=== PATIENT | male | born 1995 | race Caucasian/White ===

== ENCOUNTER → 2017-05-31 | Outpatient (CLI) | payer OTHER | END | disposition home or self-care (01) | LOC: C.LABSPEC 15:41 | PROVIDERS: ATTEND Surgery | DX: L05.01 Pilonidal cyst with abscess (principal) ==

== ENCOUNTER → 2017-08-22 | Outpatient (CLI) | payer OTHER | END | disposition home or self-care (01) | LOC: C.RDSM 10:00 | PROVIDERS: ATTEND Orthopaedic Surgery Sports Medicine | DX: S49.90XA Unspecified injury of shoulder and upper arm, unspecified arm, initial encounter (principal); X58.XXXA Exposure to other specified factors, initial encounter ==

== ENCOUNTER 2017-09-01 23:38 | Emergency (ER) | payer OTHER ==
[~2017-09-01] VITALS: Ht 180.3 cm; Wt 104.3 kg
[2017-09-01 23:40] VITALS: TEMP 36.7; Ht 180.3 cm; Wt 104.3 kg
[2017-09-02] MEDS ORDERED: LORAZEPAM 1 MG TAB SL STA
[2017-09-02 00:21] LABS: PTT PATIENT 28.8 SECONDS (21.0-31.0)
[2017-09-02 00:36] LABS: CALCIUM 8.4 mg/dl (8.5-10.1); POTASSIUM 3.9 mmol/L (3.5-5.1)
[2017-09-02 00:39] LABS: HEMATOCRIT 45.7 % (42-52); HEMOGLOBIN 16.1 g/dL (14.0-18.0); MEAN CELL VOLUME 89.6 fL (80-100)
[2017-09-02 00:40] LABS: MEAN CORPUSCULAR HEMOGLOBIN 31.6 pg (25-34); MEAN CORPUSCULAR HGB CONC 35.2 g/dl (32-36); MEAN PLATELET VOLUME 9.9 fL (7.4-10.4); PLATELET COUNT 351 K/uL (130-400); RED CELL DISTRIBUTION WIDTH CV 13.7 % (11.5-14.5); RED CELL DISTRIBUTION WIDTH SD 45.3 fL (36.4-46.3)
[2017-09-02 00:55] LABS: BASO % 0.7 %; BASO ABS # 0.08 K/uL (0-0.2); EOS % 1.5 %; EOS ABS # 0.18 K/uL (0-0.5); IG# 0.02 K/uL (0.00-0.02); LYMPH % 38.5 %; LYMPH ABS # 4.74 K/uL (1.2-3.4); MONO % 13.6 %; MONO ABS # 1.67 K/uL (0.11-0.59); NEUT % 45.5 %; NEUT ABS # 5.61 K/uL (1.4-6.5)
[2017-09-02 01:08] VITALS: BP 142/59; PULSE 63; O2SAT 96
--- NOTE | 2017-09-02 02:25 | EMERGENCY ROOM VISIT NOTE ---
History Report prepared by Lico: Jhonatan العلي Under the Supervision of: Dr. Tony Wise M.D. First contact with patient: 23:54 Chief Complaint: CHEST PAIN Stated Complaint: CHEST PAIN History of Present Illness The patient is a 21 year old male who presents to the Emergency Room with complaints of heavy chest pain beginning 40 minutes ago which lasted for roughly 20 minutes. The patient describes the pain as sharp and notes that it does not radiate anywhere. He states that he was drinking alcohol when the pain began. The patient notes experiencing similar chest tightness 1 week ago which resolved 3 days ago. The patient denies any swelling or pain in his legs, recent long distance travel, family history of clots, cocaine or amphetamine use , abdominal pain, vomiting, fevers, or a history of panic attacks or anxiety. He notes a history of hypertension. He initially stated that his chest pain had resolved but states that he is still has a little bit of tightness. Source of History: patient Onset: 40 minutes ago Position: chest Symptom Intensity: severe Quality: sharp, other (heavy ) Timing: resolved Modifying Factors (Worsening): other (none ) Modifying Factors (Relieving): other (none ) Associated Symptoms: No fevers, No vomiting, No abdominal pain Note: Denies: Swelling or pain in legs, history of anxiety. Review of Systems See HPI for pertinent positives & negatives. A total of 10 systems reviewed and were otherwise negative. Past Medical & Surgical No significant past medical history Family History Patient reports no known family medical history. Social History Alcohol Use: occasionally Drug Use: none Marital Status: single Housing Status: lives with roommate Occupation Status: [employer] Current/Historical Medications No Active Prescriptions or Reported Meds Allergies Coded Allergies: Monosodium Glutamate (Verified Allergy, Unknown, unknown, 09/02/17) Sodium Nitrate (Verified Allergy, Unknown, unknown, 09/02/17) Physical Exam Vital Signs Date Time Temp Pulse Resp B/P (MAP) Pulse Ox O2 Delivery O2 Flow Rate FiO2 09/02/17 01:08 63 16 142/59 96 Room Air 09/02/17 00:05 67 09/01/17 23:40 97 Room Air 09/01/17 23:40 36.7 66 16 144/85 97 Room Air Physical Exam Constitutional: Vital signs reviewed. Slightly anxious. Eyes: Pupils are equal round reactive to light. Conjunctiva are noninjected. ENT: Pharynx is clear without erythema or exudate. Mucous membranes are moist. Neck supple without meningeal signs. Respiratory: Clear to auscultation bilaterally. Breath sounds are equal bilaterally. Cardiovascular: Regular rate and rhythm. No rubs or gallops. GI: Soft, nondistended and nontender. Bowel sounds are present. Musculoskeletal: No peripheral edema. No lower extremity tenderness. Integumentary: No cyanosis. Neurological: The patient is awake and alert. No focal deficits. Psychiatric: Anxious appearing. Medical Decision & Procedures ER Provider Diagnostic Interpretation: Radiology results as stated below per my review : CHEST X-RAY: No acute cardiopulmonary process. No consolidation. Laboratory Results 09/01/17 23:52 Red Blood Count 5.10, Mean Corpuscular Volume 89.6, Mean Corpuscular Hemoglobin 31.6, Mean Corpuscular Hemoglobin Concent 35.2, Mean Platelet Volume 9.9, Neutrophils (%) (Auto) 45.5, Lymphocytes (%) (Auto) 38.5, Monocytes (%) (Auto) 13.6, Eosinophils (%) (Auto) 1.5, Basophils (%) (Auto) 0.7, Neutrophils # (Auto ) 5.61, Lymphocytes # (Auto) 4.74, Monocytes # (Auto) 1.67, Eosinophils # (Auto ) 0.18, Basophils # (Auto) 0.08 09/01/17 23:52 Test 09/01/17 23:52 09/02/17 00:22 White Blood Count 12.30 K/uL (4.8-10.8) Red Blood Count 5.10 M/uL (4.7-6.1) Hemoglobin 16.1 g/dL (14.0-18.0) Hematocrit 45.7 % (42-52) Mean Corpuscular Volume 89.6 fL (80-100) Mean Corpuscular Hemoglobin 31.6 pg (25-34) Mean Corpuscular Hemoglobin Concent 35.2 g/dl (32-36) Platelet Count 351 K/uL (130-400) Mean Platelet Volume 9.9 fL (7.4-10.4) Neutrophils (%) (Auto) 45.5 % Lymphocytes (%) (Auto) 38.5 % Monocytes (%) (Auto) 13.6 % Eosinophils (%) (Auto) 1.5 % Basophils (%) (Auto) 0.7 % Neutrophils # (Auto) 5.61 K/uL (1.4-6.5) Lymphocytes # (Auto) 4.74 K/uL (1.2-3.4) Monocytes # (Auto) 1.67 K/uL (0.11-0.59) Eosinophils # (Auto) 0.18 K/uL (0-0.5) Basophils # (Auto) 0.08 K/uL (0-0.2) RDW Standard Deviation 45.3 fL (36.4-46.3) RDW Coefficient of Variation 13.7 % (11.5-14.5) Immature Granulocyte % (Auto) 0.2 % Immature Granulocyte # (Auto) 0.02 K/uL (0.00-0.02) Red Blood Cell Morphology Unremarkable Prothrombin Time 10.2 SECONDS (9.0-12.0) Prothromb Time International Ratio 1.0 (0.9-1.1) Activated Partial Thromboplast Time 28.8 SECONDS (21.0-31.0) Partial Thromboplastin Ratio 1.1 Anion Gap 7.0 mmol/L (3-11) Est Creatinine Clear Calc Drug Dose 142.4 ml/min Estimated GFR () 123.3 Estimated GFR (Non- 106.4 BUN/Creatinine Ratio 15.5 (10-20) Calcium Level 8.4 mg/dl (8.5-10.1) Bedside D-Dimer 142 ng/mlFEU (0-450) Bedside Troponin I < 0.030 ng/ml (0-0.045) ECG Per My Interpretation Indication: chest pain Rate (beats per minute): 55 Rhythm: sinus bradycardia Findings: other (QRS 120ms, early repolarization, no PVCs) ED Course 1382: The patient was evaluated in room C6. A complete history and physical exam was performed. 0000: Ordered Lorazepam 1mg SL. 0114: I reevaluated the patient, his chest pain is now gone. I discussed his test results with him. 0130: Upon reevaluation, the patient appeared to have improvement of his symptoms. I discussed tonight's findings with him. He verbalized agreement of the treatment plan. He was discharged home. Medical Decision This is a 21-year-old male presents with chest pain. Differential diagnosis includes GERD, pleurisy, pulmonary embolism, pneumothorax, anxiety. I did perform a limited focused review of portions of the patient's old chart on the electronic medical record. The patient has had no recent pertinent visits to this hospital. I did evaluate the patient as noted above. IV access was established. The patient was placed on a continuous nurse monitoring. I did order and personally review the patient's 12-lead EKG and chest x-ray as described above. He has no acute ischemic changes on his twelve-lead EKG. Chest x-ray is unremarkable. I did order and review the patient's blood work as noted in the electronic medical record. Troponin and d-dimer are negative. I did treat patient with Ativan 1 mg sublingually. I did reassess patient. He states his chest discomfort is gone. He feels much better. I did discuss the test results with him. I did recommend close follow-up with his doctor. He was discharged in good condition. He was advised to avoid alcohol in case he does have some reflux. Medication Reconcilliation Current Medication List: was personally reviewed by me Blood Pressure Screening Patient's blood pressure: Elevated blood pressure Blood pressure disposition: Referred to PCP The patient is hypertensive. Impression Primary Impression: Acute chest pain Scribe Attestation The scribe's documentation has been prepared under my direct and personally reviewed by me in its entirety. I confirm that the note above accurately reflects all work, treatment, procedures, and medical decision making performed by me. Departure Information Dispostion Home / Self-Care Prescriptions No Active Prescriptions or Reported Meds Referrals No Doctor, Assigned (PCP) Forms HOME CARE DOCUMENTATION FORM, IMPORTANT VISIT INFORMATION Patient Instructions ED Chest Pain Atypical Unkn Cause, My [facility] Additional Instructions You have been examined and treated today on an emergency basis only. This is not a substitute for, or an effort to provide, complete comprehensive medical care. It is impossible to recognize and treat all injuries or illnesses in a single emergency department visit. It is therefore important that you follow up closely with your physician. Call as soon as possible for an appointment. Return for worsening symptoms or if you develop fever, vomiting, or any other concerning symptoms.
--- NOTE | 2017-09-02 06:32 | DIAGNOSTIC IMAGING REPORT ---
CHEST 2 VIEWS ROUTINE HISTORY: 21 years-old Male eval for pna acute atypical chest pain with cough COMPARISON: None available TECHNIQUE: PA and lateral views of the chest FINDINGS: Cardiomediastinal and hilar silhouettes are within normal limits. There is no pneumothorax, pleural effusion, focal airspace consolidation or overt pulmonary edema. The bones of the chest appear grossly intact. There is slight convex right curvature of the midthoracic spine. Bones appear grossly intact. IMPRESSION: No acute process. The above report was generated using voice recognition software. It may contain grammatical, syntax or spelling errors. Electronically signed by: Iglesia Wu M.D. 09/02/2017 6:31 AM Dictated Date/Time: 09/02/2017 6:30 AM
== END 2017-09-02 01:17 | disposition home or self-care (01) ==
LOC: EDBD 23:38 → C.EDC 23:39
DX: R07.9 Chest pain, unspecified (principal); Z88.8 Allergy status to other drugs, medicaments and biological substances